=== PATIENT | female | born 1960 | race African-American/Black ===

== ENCOUNTER 2020-02-25 22:31 | Emergency (ER) | payer OTHER ==
[~2020-02-25] VITALS: Ht 175.3 cm; Wt 89.8 kg
[~2020-02-25 22:31] MED LIST: TERB250T55 PO
[2020-02-25 22:41] VITALS: BP 150/96
--- NOTE | 2020-02-25 22:46 | NUR ---
PT AMBULATED TO BED 4 WITH STEADY GAIT
--- NOTE | 2020-02-25 22:50 | NUR ---
59F PRESENTS TO ED WITH C/O THROBBING HEADACHE THAT STARTED 0300. PT STATES THAT AT 0300 SHE JUST WOKE AND FELT LIKE HER HEAD WAS HIT WITH A BRICK. STATES THAT THEY HAVE TAKEN EXEDRIN X 2 AT 1400 TODAY WITH MINIMAL PAIN RELIEF. PT STATES PAIN IS RADIATING TO RT NECK. DENIES BLURRY VISION. DENIES LOC. DENIES SOB/COUGH. RR EVEN AND UNLABORED. DENIES N/V/D. HEART SOUNDS EVEN AND REGULAR. PMHX: DENIES RX: DENIES NKA NEGATIVE FOR COVID SCREENING.
--- NOTE | 2020-02-25 22:51 | NUR ---
RENETTA MAYORGA AT BEDSIDE.
[2020-02-25] MEDS ORDERED: SUMAtriptan 25 MG TAB PO ONE (22:55)
--- NOTE | 2020-02-25 23:00 | NUR ---
PT MEDICATED WITH SUMATRIPTAN. TOLERATED WELL. NADR
--- NOTE | 2020-02-25 23:22 | NUR ---
PT TAKEN TO CT VIA W/C.
[2020-02-25] MEDS ORDERED: KETOROLAC 30 MG/ML VIAL IVP ONE (23:40)
--- NOTE | 2020-02-25 23:40 | NUR ---
PT RETURNED FROM CT.
--- NOTE | 2020-02-25 23:54 | NUR ---
PT REFUSED IV PLACEMENT. DR. MAYORGA MADE AWARE AND GAVE OK TO GIVE TORADOL 30MG TO BE GIVEN IM. GIVEN IM IN L DELTOID.
[2020-02-26] MEDS ORDERED: MORPHINE SULFATE 2 MG/ML SYR IVP ONE
--- NOTE | 2020-02-26 00:20 | NUR ---
PT REFUSED MORPHINE FOR PAIN. PT STATES THAT PAIN WAS RELIVED BY TORADOL AND REDUCED FROM 10/10 TO 5/10. NADR FROM TORADOL.
--- NOTE | 2020-02-26 00:23 | NUR ---
DR. MAYORGA AT BEDSIDE.
[2020-02-26 00:35] VITALS: BP 148/98
--- NOTE | 2020-02-26 00:35 | NUR ---
Patient discharged with v/s stable. Written and verbal after care instructions given and explained. Patient alert, oriented and verbalized understanding of instructions. Ambulatory with steady gait. All questions addressed prior to discharge. ID band removed. Patient advised to follow up with PMD. Rx of NAXPORXEN given. Patient educated on indication of medication including possible reaction and side effects. Opportunity to ask questions provided and answered.
== END 2020-02-26 00:35 | disposition home or self-care (01) ==
LOC: MED 22:31
DX: R51 Headache (principal); I10 Essential (primary) hypertension; Z79.899 Other long term (current) drug therapy
CPT/HCPCS: 70450; 96372; 99284; J1885; J2270

== ENCOUNTER 2020-05-16 19:07 | Emergency (ER) | payer OTHER ==
[~2020-05-16] VITALS: Ht 175.3 cm; Wt 93.9 kg
[2020-05-16 19:33] VITALS: BP 115/80
--- NOTE | 2020-05-16 19:38 | NUR ---
PT TAKEN TO BED 3
--- NOTE | 2020-05-16 20:17 | NUR ---
PTATKEN TO XRAY VIA WHEELCHAIR
--- NOTE | 2020-05-16 20:34 | NUR ---
PT STEPPED IN GLASS 2 DAYS AGO WITH HER LEFT FOOT, THOUGHT SHE REMOVED ALL THE GLASS BUT FEELS LIKE THERE ARE STILL SHARDS OF GLASS IN THE BALL OF HER FOOT. THERE IS A SMALL CUT WHERE THE LARGER PIECE OF GLASS WENT IN HER FOOT, NO BLEEDING REDNESS OR SWELLING TO AREA. PT STATES SHES UNABLE TO PUT ANY DIRECT PRESSURE ON THAT AREA DUE TO THE SHARP PAIN IN HER FOOT. NKA NO HX
[2020-05-16] MEDS ORDERED: LIDOCAINE 2% 1000 MG/50 ML VIAL INJ ONE (20:40)
--- NOTE | 2020-05-16 20:43 | NUR ---
EVELIO YO AT BEDSIDE
--- NOTE | 2020-05-16 20:58 | NUR ---
Dr. Roche examining patient.
--- NOTE | 2020-05-16 21:53 | NUR ---
DR LENNON AT BEDSIDE ATTEMPTING TO REMOVE GLASS SHARD FROM PATIENT'S FOOT.
[2020-05-16] MEDS ORDERED: BACITRACIN OINT 500 UNITS/GM PKT TP ONE (23:04)
[2020-05-16 23:42] VITALS: BP 114/78
--- NOTE | 2020-05-16 23:43 | NUR ---
Patient discharged with v/s stable. Written and verbal after care instructions given and explained. Patient alert, oriented and verbalized understanding of instructions. Ambulatory with steady gait. All questions addressed prior to discharge. ID band removed. Patient advised to follow up with PMD. Rx of MOTRIN AND KEFLEX given. Patient educated on indication of medication including possible reaction and side effects. Opportunity to ask questions provided and answered.
--- NOTE | 2020-05-16 23:44 | NUR ---
PT GIVEN TDAP, UNABLE TO READ LOT AND SERIAL NUMER, HOWEVER, STICKER IS ON PAPERWORK
== END 2020-05-16 23:43 | disposition home or self-care (01) ==
LOC: MED 19:07
DX: S90.852A Superficial foreign body, left foot, initial encounter (principal); Z79.899 Other long term (current) drug therapy; W25.XXXA Contact with sharp glass, initial encounter; Y93.B2 Activity, push-ups, pull-ups, sit-ups; Y92.89 Other specified places as the place of occurrence of the external cause; Y99.8 Other external cause status
CPT/HCPCS: 10120; 73620; 73630; 90471; 90715; 99285; J2001; Q0092; 99283; 99284

== ENCOUNTER 2020-05-24 09:45 | Emergency (ER) | payer OTHER ==
[~2020-05-24] VITALS: Ht 175.3 cm; Wt 94.3 kg
[2020-05-24 09:50] VITALS: BP 119/74
--- NOTE | 2020-05-24 09:53 | NUR ---
PT AMBULATED TO BED 4.
--- NOTE | 2020-05-24 10:17 | NUR ---
Patient discharged with v/s stable. Written and verbal after care instructions given and explained. Patient alert, oriented and verbalized understanding of instructions. Ambulatory with steady gait. All questions addressed prior to discharge. ID band removed. Patient advised to follow up with PMD. Rx of keflex and bactrim given. Patient educated on indication of medication including possible reaction and side effects. Opportunity to ask questions provided and answered. No nursing care provided in our er.
== END 2020-05-24 10:17 | disposition home or self-care (01) ==
LOC: MED 09:45
DX: S91.312D Laceration without foreign body, left foot, subsequent encounter (principal); Z48.00 Encounter for change or removal of nonsurgical wound dressing; X58.XXXD Exposure to other specified factors, subsequent encounter; Z48.02 Encounter for removal of sutures
CPT/HCPCS: 99283

== ENCOUNTER 2020-05-31 09:47 | Emergency (ER) | payer MEDICARE, OTHER ==
[~2020-05-31] VITALS: Ht 175.3 cm; Wt 89.8 kg
[2020-05-31 10:00] VITALS: BP 123/69
== END 2020-05-31 10:20 | disposition home or self-care (01) ==
LOC: MED 09:47
DX: S91.312D Laceration without foreign body, left foot, subsequent encounter (principal); X58.XXXD Exposure to other specified factors, subsequent encounter; Z79.899 Other long term (current) drug therapy
CPT/HCPCS: 99281